=== PATIENT | female | born 1985 | race Caucasian/White ===

== ENCOUNTER 2024-03-01 08:54 | Inpatient (IN) | payer OTHER ==
[2024-03-01] MEDS ORDERED: Diphenoxylate HCl/Atropine Tablet PO PRN (09:39)
[2024-03-01] MEDS ORDERED: hydrALAZINE 20 MG/ML VIAL SLOW IVP PRN (09:39)
[2024-03-01] MEDS ORDERED: Lidocaine 1% (PF) 30 ML VIAL SC PRN (09:39)
[2024-03-01] MEDS ORDERED: Methylergonovine 0.2 MG/ML VIAL IM PRN (09:39)
[2024-03-01] MEDS ORDERED: fentaNYL 50 mcg/mL 1 mL Vial SLOW IVP PRN (09:39)
[2024-03-01] MEDS ORDERED: Carboprost 250 MCG/ML AMP IM PRN (09:39)
[2024-03-01] MEDS ORDERED: Acetaminophen 500 MG TAB PO PRN (09:39)
[2024-03-01] MEDS ORDERED: Promethazine HCl 25 MG/ML VIAL IM PRN ×2 (09:39→11:36)
[2024-03-01] MEDS ORDERED: HYDROcodone/Acetaminophen 5/325 mg Tablet PO PRN (09:39)
[2024-03-01] MEDS ORDERED: Ondansetron PF 4 MG/2 ML Vial IVP PRN ×2 (09:39→11:36)
[2024-03-01] MEDS ORDERED: Lactated Ringer's 1,000 ML IV SCH (09:45)
[2024-03-01] MEDS ORDERED: Oxytocin 30 units/NS 500 ML 500 ML IV SCH ×2 (09:45)
[2024-03-01] MEDS ORDERED: Dextrose 5%-Lactated Ringers 1,000 ML IV SCH (09:45)
[2024-03-01 10:10] VITALS: BMI 31.0
[2024-03-01 10:22] LABS: Hematocrit 35.5 % (34.9-44.5); Hemoglobin 12.2 g/dL (12.0-15.5); Mean Corpuscular HGB CONC 34.4 g/dL (32.0-36.0); Mean Corpuscular Hemoglobin 30.5 pg (27.0-33.0); Mean Corpuscular Volume 88.8 fL (81.6-98.3); Platelet Count 198 10x3/uL (150-450); RBC Distribution Width 12.5 % (11.5-14.5); White Blood Cell (WBC) Count 11.1 10x3/uL (3.5-10.5)
[2024-03-01 11:15] LABS: HBsAg Index 0.21 S/CO (0-0.99); HIV (1/2) Antibody/Antigen Non-Reactive (NonReactive); HIV 1/2 INDEX 0.06 S/CO (<1.00); Hep B Surf Ag - L&D Non-Reactive S/CO (NonReactive); Syphilis Antibody Nonreactive (Nonreactive); Syphilis Antibody Index 0.11 S/CO (<1.00 Non-Reactive)
[2024-03-01] MEDS: fentaNYL/Ropivacaine Epidural 100 ML ONE (11:15)
[2024-03-01 11:21] LABS: Influenza A by NAA Not Detected (NotDetected); Influenza B by NAA Not Detected (NotDetected); SARS-CoV-2 NAA Rapid Test Not Detected (NotDetected)
[2024-03-01] MEDS ORDERED: Naloxone HCl 0.4 mg/ml Vial IVP PRN ×2 (11:36)
[2024-03-01] MEDS ORDERED: Lactated Ringer's 500 ML IV PRN (11:36)
[2024-03-01] MEDS ORDERED: Acetaminophen 325 MG TAB PO PRN (11:36)
[2024-03-01] MEDS ORDERED: ePHEDrine Sulfate 50 MG/10 ML VIAL SLOW IVP PRN (11:36)
[2024-03-01] MEDS ORDERED: Moisturizing Cream (Eucerin) 113 GM JAR TOP PRN (11:36)
[2024-03-01] MEDS ORDERED: diphenhydrAMINE 50 MG/ML VIAL IVP PRN (11:36)
[2024-03-01] MEDS ORDERED: fentaNYL 2 mcg/Ropivacaine 0.2% Epidural 100 ML CADD EPIDURAL SCH (11:45)
[2024-03-01] MEDS ORDERED: Communication Order-Pharmacy FS SCH (11:45)
[2024-03-01] MEDS: Misoprostol 200 MCG TAB PR PRN (14:26)
[2024-03-01] MEDS: Oxytocin 30 units/NS 500 ML 500 ML IV SCH (14:26)
[2024-03-01] MEDS: Ibuprofen 800 MG TAB PO PRN (15:02)
[2024-03-01] MEDS ORDERED: Lanolin Ointment 7 GM TUBE TOP PRN (15:42)
[2024-03-01] MEDS ORDERED: Bisacodyl 10 MG SUPP PR PRN (15:42)
[2024-03-01] MEDS ORDERED: diphenhydrAMINE 25 MG CAP PO PRN (15:42)
[2024-03-01] MEDS ORDERED: Preparation H Ointment 28 GM TUBE PR PRN (15:42)
[2024-03-01] MEDS ORDERED: Milk Of Magnesia 30 ML UDCUP PO PRN (15:42)
[2024-03-01] MEDS ORDERED: Boostrix 0.5 ML (Tdap) VIAL (>/=7 yrs of age) IM ONE (15:42)
[2024-03-01] MEDS ORDERED: Benzocaine-Menthol 82.5 ML CAN TOP PRN (15:42)
[2024-03-01 16:05] LABS: ALT (SGPT) 9 U/L (8-55); AST (SGOT) 12 U/L (5-34); Albumin 2.7 g/dL (3.5-5.0); Alkaline Phosphatase 140 U/L (40-110); Anion Gap 15 mmol/L (10-20); BUN (Urea Nitrogen) 9 mg/dL (7.0-18.7); Bilirubin, Total 0.2 mg/dL (0.2-1.2); Calc. Creatinine Clearance 126 mL/min (70-130); Calcium 10.4 mg/dL (7.8-10.44); Carbon Dioxide 17 mmol/L (22-29); Chloride 109 mmol/L (98-107); Estimated GFR 82; Globulin 3.2 g/dL (2.4-3.5); Glucose 78 mg/dL (70-105); Potassium 4.1 mmol/L (3.5-5.1); Protein, Total 5.9 g/dL (6.0-8.3); Sodium 137 mmol/L (136-145)
[2024-03-01] MEDS: Ferrous Sulfate 325 MG TAB PO SCH (19:23)
[2024-03-01] MEDS: Ibuprofen 800 MG TAB PO SCH (21:58)
[2024-03-02] MEDS ORDERED: Measles/Mumps/Rubella 10 MCG/0.5 ML VIAL SC ONE (08:39)
[2024-03-02] MEDS: Docusate 100 MG CAP PO PRN (12:02)
[2024-03-03 08:02] VITALS: BP 134/82; TEMP 97.7
[2024-03-03] MEDS ORDERED: Bupivacaine 0.25% HCL 30 ML VIAL ONE (10:00)
== END 2024-03-03 17:10 | disposition home or self-care (01) | DRG 807 ==
LOC: CSHLD/OP 08:54 → CSHLD 09:29 → CSHPP 16:52
PROVIDERS: ADMIT Family Medicine; ATTEND Family Medicine
PROC: 10E0XZZ Delivery of Products of Conception, External Approach (ICD-10-PCS; principal; 2024-03-01)
DX: O48.0 Post-term pregnancy (principal); Z37.0 Single live birth; O99.02 Anemia complicating childbirth; Z3A.41 41 weeks gestation of pregnancy; O99.214 Obesity complicating childbirth; O09.523 Supervision of elderly multigravida, third trimester; O99.344 Other mental disorders complicating childbirth; F41.9 Anxiety disorder, unspecified; F32.A Depression, unspecified; Z14.8 Genetic carrier of other disease
CPT/HCPCS: 36415; 51702; 80053; 83615; 85027; 86780; 86850; 86900; 86901; 87340; 87389; 99285; J0665; J2590